=== PATIENT | female | born 1965 | race Caucasian/White ===

== ENCOUNTER 2021-05-01 12:59 | Emergency (ER) | payer OTHER, SELFPAY ==
[2021-05-01 13:01] VITALS: BP 172/99; PULSE 120; RESP 16; TEMP 36.9; O2SAT 98; BMI 30.2
--- NOTE | 2021-05-01 13:11 | HMH.EDGENADL ---
ED Disposition Clinical Impression: Sciatica, right side Disposition: Home, Self-Care Condition on Discharge: Fair Instructions: DI for Sciatica, DI for Back Pain With Sciatica Prescriptions: Diclofenac Sodium [Diclofenac Sod 100gm Topical Gel] 1 applicatio TP BID #15 gm Transmission Status: Pending to [id number] methocarbamoL [Methocarbamol 500mg Tablet] 500 mg PO TID PRN 30 Days #30 tab PRN Reason: Muscle Spasm Transmission Status: Pending to [id number] predniSONE [Prednisone 10mg Tab Dose-Pack] 10 mg PO UD DOSE PK #15 tab Transmission Status: Pending to [id number] Referrals: Fermín Avery MD [Primary Care Provider] - Time of Disposition: 13:19 - Critical Care Critical Care Time: No Attestation: On , the high probability of a clinically significant, sudden or life threatening deterioration of the following system(s) required my full and direct attention, intervention and personal management. The time I documented below is in addition to time spent performing reported procedures but includes the following listed in this critical care notation. Medical Decision Making - Medical Records Medical records reviewed: Yes: I reviewed the patient's medical records. - Jacky Inquiry Pt receiving controlled substance: No Orders (Tests/Meds): ED MEDICATIONS Generic Name Dose Route Start Last Admin Trade Name Freq PRN Reason Stop Dose Admin Ketorolac Tromethamine 30 mg 05/01/21 13:11 Ketorolac 30mg/Ml Vial IM 05/01/21 13:12 ONCE ONE Lidocaine 1 each 05/01/21 13:11 Lidocaine 5% Transdermal Patch TP 05/01/21 13:12 ONCE ONE Methylprednisolone Acetate 40 mg 05/01/21 13:11 Methylprednisolone Acetate 40mg/Ml Vial IM 05/01/21 13:12 ONCE ONE Medical Decision Narrative: In summary this is a 55-year-old female presenting to the emergency department with radicular low back pain of 2 weeks duration. Patient clinically stable on arrival. Vital signs within normal limits. Tenderness on the right paraspinal musculature. 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 No signs of cauda equina. No red flag symptoms for spinal epidural abscess. She is established with an orthopedic group with plans for an MRI in the near future. Will address her symptoms today. Patient given 40 mg IM Depo-Medrol and 2 mg Toradol. Lidoderm patch applied. On reassessment, pain had significantly improved. She was able to ambulate without difficulty. Most likely diagnosis is acute exacerbation of radicular low back pain, sciatica. patient counseled on conservative managment. Recommended scheduled anti-inflammatories, topical Lidoderm or diclofenac. Given prescription for Robaxin for muscle spasm. Follow-up with Ortho as soon as available. Given return precautions. Stable for discharge. General Adult HPI - General Stated complaint: AO [id number] back pain,home accident Time Seen by Provider: 05/01/21 13:02 Mode of Arrival: Ambulatory Source of Information: Patient Limitations: No Limitations - History of Present Illness HPI narrative: 55-year-old female presenting to the emergency department with low back pain. Pain is located on the right side. Starts in the low back and radiates into her buttock and the back of her thigh. Pain started about 2 weeks ago. She had been lifting and moving furniture. After a twisting motion developed pain. Pain was worse the next morning when she woke up. She saw a practitioner at [facility]. X-ray was negative. They gave her a prednisone burst pack as well as diclofenac. This has not been helping her symptoms. Was difficult to find a position of comfort to sleep last night. [place] like she had spasm pain in the low back. Now she has numbness radiating in her first and second toes. She is able to walk. No numbness, weakness, tingling in her genital area. No difficulty urinating. No fevers or chills. N
[2021-05-01 14:17] VITALS: BP 161/80; PULSE 107; RESP 16; TEMP 36.9; O2SAT 98
== END 2021-05-01 14:19 | disposition home or self-care (01) ==
PROVIDERS: Emergency Provider Emergency Medicine; PCP Family Medicine
DX: M54.41 Lumbago with sciatica, right side (principal); F41.9 Anxiety disorder, unspecified; K21.9 Gastro-esophageal reflux disease without esophagitis; I10 Essential (primary) hypertension; Z79.899 Other long term (current) drug therapy
CPT/HCPCS: 96372; 99281; J1030